=== PATIENT | female | born 1945 | race Caucasian/White ===

== ENCOUNTER → 2019-06-01 | Outpatient (CLI) | payer OTHER ==
[~2019-06-01] MED LIST: ACYCLOVIR 800800 MG PO; ASPIRIN81 M2 PO; ATENOLOL 50MG T50 M1 PO; BACTRIM DS TAB1 EACH PO; COZAAR 50 MG TA50 M2 PO; ELEMENTAL CALC600 MG PO; HYDROCHLOROTHIA25 M2 PO; LIPITOR80 MG PO; OMEPRAZOLE 20 M20 MG PO; PLAVIX 75 MG TA75 MG PO; SIMVASTATIN40 MG PO; TOPROL XL25 MG PO; VITAMIN D1000 UNI1 PO; ZETIA10 MG PO
== END ==
LOC: M.LAB 04:45
DX: E87.6 Hypokalemia (principal)

== ENCOUNTER → 2020-02-04 | Outpatient (CLI) | payer OTHER | LOC: M.RAD 13:30 | PROVIDERS: ATTEND Family Medicine | DX: M81.0 Age-related osteoporosis without current pathological fracture (principal) ==